=== PATIENT | female | born 1970 | race Caucasian/White ===

== ENCOUNTER 2017-06-02 23:27 | Emergency (ER) | payer BC ==
[2017-06-02] MEDS ORDERED: Clindamycin HCl 150 MG Cap PO ONE (23:36)
--- NOTE | 2017-06-02 23:38 | EDM.PDOC ---
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 ED EXAM, ANIMAL BITE - Physical Exam Exam: See Below Exam Limited By: No Limitations General Appearance: Alert, WD/WN, No Apparent Distress, Anxious Ears: Hearing Grossly Normal Throat/Mouth: Normal Voice, No Airway Compromise Head: Atraumatic, Facial Tenderness (left cheek 4x spfl puncture without active bleeding), Other Neck: Non-Tender, Full Range of Motion Respiratory/Chest: No Respiratory Distress Cardiovascular: Regular Rate, Rhythm GI/Abdominal: Soft, Non-Tender Neurological: Alert, Oriented, Normal Cognition, Normal Gait, No Motor/Sensory Deficits Psychiatric: Anxious Skin Exam: Normal Color, Warm/Dry Course - Vital Signs Last Recorded V/S: Last Vital Signs Temp 37.3 C 06/02/17 23:36 Pulse 114 H 06/02/17 23:36 Resp 16 06/02/17 23:36 BP 163/89 H 06/02/17 23:36 Pulse Ox 97 06/02/17 23:36 - Orders/Labs/Meds Meds: Medications Discontinued Medications Generic Name Dose Route Start Last Admin Trade Name Freq PRN Reason Stop Dose Admin Clindamycin HCl 150 mg 06/02/17 23:36 06/02/17 23:44 Cleocin PO 06/02/17 23:37 150 mg ONETIME ONE Administration Departure - Departure Time of Disposition: 23:45 Disposition: Home, Self-Care 01 Condition: Good Clinical Impression: Cat bite of cheek Qualifiers: Encounter type: initial encounter Laterality: left Qualified Code(s): S01.452A - Open bite of left cheek and temporomandibular area, initial encounter - Discharge Information Instructions: Animal Bite, [id number] Forms: ED Department Discharge Additional Instructions: 1) keep wounds clean and dry 2) recheck if looks worse rx given; clindamycin 150mg qid x 40
== END 2017-06-02 23:48 | disposition home or self-care (01) ==
LOC: DL.ED 23:27
DX: S01.452A Open bite of left cheek and temporomandibular area, initial encounter (principal); Z88.0 Allergy status to penicillin; Z88.1 Allergy status to other antibiotic agents; Z88.2 Allergy status to sulfonamides; W55.01XA Bitten by cat, initial encounter
CPT/HCPCS: 99283; A9270

== ENCOUNTER 2017-06-04 17:15 | Emergency (ER) | payer BC ==
[2017-06-04] MEDS ORDERED: Sodium Chloride 0.9% 1,000 ML IV ONE (20:26)
[2017-06-04] MEDS ORDERED: Clindamycin Phosphate 900 MG in Sodium Chloride 0.9% 100 ML IV ONE (20:26)
--- NOTE | 2017-06-04 20:32 | EDM.PDOC ---
ED HPI GENERAL MEDICAL PROBLEM - General Chief Complaint: Bite:Animal, Insect Stated Complaint: CAT BIT [id number] Time Seen by Provider: 06/04/17 20:27 Source of Information: Reports: Patient History Limitations: Reports: No Limitations - History of Present Illness INITIAL COMMENTS - FREE TEXT/NARRATIVE: s/p cat bite 2 days been taking clinda' but started redness & swelling on opposite face. Frontal Head Pain Score (Numeric/FACES): 4 - Related Data Allergies Allergy/AdvReac Type Severity Reaction Status Date / Time Penicillins Allergy Hives Verified 06/04/17 19:29 Sulfa (Sulfonamide Allergy Hives Verified 06/04/17 19:29 Antibiotics) tetracycline Allergy Hives Verified 06/04/17 19:29 Home Meds: Home Meds Norgestrel-Ethinyl Estradiol [Elinest-28 Tablet] 1 tab PO DAILY 06/02/17 [ History] Venlafaxine HCl [Venlafaxine HCl ER] 37.5 mg PO BID 06/02/17 [History] metFORMIN HCl [Metformin HCl] 1 tab PO BID 06/02/17 [History] Past Medical History - Past Health History Medical/Surgical History: Denies Medical/Surgical History Social & Family History - Tobacco Use Smoking Status *Q: Never Smoker Second Hand Smoke Exposure: No - Caffeine Use Caffeine Use: Reports: Soda - Recreational Drug Use Recreational Drug Use: No ED ROS GENERAL - Review of Systems Review Of Systems: ROS reveals no pertinent complaints other than HPI. ED EXAM, ANIMAL BITE - Physical Exam Exam: See Below Exam Limited By: No Limitations General Appearance: Alert, WD/WN, Mild Distress, Other (upset) Ears: Hearing Grossly Normal Throat/Mouth: Normal Voice, No Airway Compromise Head: Facial Swelling, Other (right side without lympahngitis, cat scratches on left side mildly inflammed) Neck: Non-Tender, Full Range of Motion Respiratory/Chest: No Respiratory Distress Cardiovascular: Regular Rate, Rhythm GI/Abdominal: Soft, Non-Tender Neurological: Alert, Oriented, Normal Cognition, Normal Gait, No Motor/Sensory Deficits Psychiatric: Normal Affect, Normal Mood Skin Exam: Normal Color, Warm/Dry Course - Vital Signs Last Recorded V/S: Last Vital Signs Temp 36.6 C 06/04/17 19:21 Pulse 98 06/04/17 19:21 Resp 18 06/04/17 19:21 BP 168/102 H 06/04/17 19:21 Pulse Ox 99 06/04/17 19:21 - Orders/Labs/Meds Orders: Active Orders 24 hr Category Date Time Status CULTURE BLOOD [BC] Stat Lab 06/04/17 20:35 Received Labs: Laboratory Tests 06/04/17 06/04/17 06/04/17 Range/Units 20:35 20:35 20:35 WBC 8.3 (5.0-10.0) 10^3/uL RBC 4.19 L (4.2-5.4) 10^6/uL Hgb 11.8 L (12.0-16.0) g/dL Hct 36.1 L (37.0-47.0) % MCV 86.2 (80-100) fL MCH 28.2 (27.0-34.0) pg MCHC 32.7 L (33.0-35.0) g/dL Plt Count 399 (150-450) 10^3/uL Neut % (Auto) 66.6 (42.2-75.2) % Lymph % (Auto) 19.9 L (20.5-50.1) % [place] % (Auto) 10.0 H (2-8) % Eos % (Auto) 3.5 H (1.0-3.0) % Baso % (Auto) 0.0 (0.0-1.0) % Sodium 136 (135-145) mmol/L Potassium 3.8 (3.6-5.0) mmol/L Chloride 101 (101-111) mmol/L Carbon Dioxide 26.0 (21.0-31.0) mmol/L Anion Gap 12.8 BUN 15 (7-18) mg/dL Creatinine 0.6 (0.6-1.3) mg/dL Est Cr Clr Drug Dosing TNP Estimated GFR (MDRD) > 60 BUN/Creatinine Ratio 25.00 Glucose 166 H (74-105) mg/dL Lactic Acid 1.4 (0.5-2.2) mmol/L Calcium 8.9 (8.4-10.2) mg/dl Total Bilirubin 0.6 (0.2-1.0) mg/dL AST 20 (10-42) IU/L ALT 17 (10-60) IU/L Alkaline Phosphatase 73 (42-121) IU/L Total Protein 7.1 (6.7-8.2) g/dl Albumin 3.6 (3.2-5.5) g/dl Globulin 3.5 Albumin/Globulin Ratio 1.03 Meds: Medications Discontinued Medications Generic Name Dose Route Start Last Admin Trade Name Jimmy PRN Reason Stop Dose Admin Clindamycin Phosphate 900 mg/ 106 mls @ 200 mls/hr 06/04/17 20:26 06/04/17 20 :52 Sodium Chloride IV 06/04/17 20:57 Not Given ONETIME ONE Sodium Chloride 1,000 mls @ 999 mls/hr 06/04/17 20:26 06/04/17 20:49 Normal Saline IV 06/04/17 21:26 999 mls/hr .BOLUS ONE Administration Clindamycin Phosphate 600 mg/ 104 mls @ 200 mls/hr 06/04/17 20:47 06/04/17 21 :00 Sodium Chloride IV 06/04/17 21:18 200 mls/hr ONETIME ONE Administration - Re-Assessments/Exams Free Text/Narrative Re-Assessment/Exam: 06/04/17 21:41 results discussed with pt who is feeling bit better s/p IV clinda Departure - Departure Time of Disposition: 21:42 Disposition: Home, Self-Care 01 Condition: Good Clinical Impression: Cellulitis Qualifiers: Site of cellulitis: face Qualified Code(s): L03.211 - Cellulitis of face - Discharge Information Instructions: Cellulitis, Adult, [id number] Forms: ED Department Discharge Additional Instructions: 1) must return if looks worse in morning 2) continue clindamycin - My Orders Last 24 Hours: My Active Orders 06/04/17 20:35 CULTURE BLOOD [BC] Stat - Assessment/Plan Last 24 Hours: My Active Orders 06/04/17 20:35 CULTURE BLOOD [BC] Stat
[2017-06-04] MEDS ORDERED: Clindamycin Phosphate 600 MG in Sodium Chloride 0.9% 100 ML IV ONE (20:47)
[2017-06-04 21:03] LABS: ANION GAP 12.8; CHLORIDE,CL 101 mmol/L (101-111); SODIUM,NA 136 mmol/L (135-145)
[2017-06-04] MEDS ORDERED: Diphtheria,Pertussis(Acell),Tetanus Vaccine 0.5 ML SDV IM ONE (21:42)
== END 2017-06-04 22:10 | disposition home or self-care (01) ==
LOC: DL.ED 17:15
DX: S00.81XA Abrasion of other part of head, initial encounter (principal); L03.211 Cellulitis of face; Z79.84 Long term (current) use of oral hypoglycemic drugs; Z88.0 Allergy status to penicillin; Z88.1 Allergy status to other antibiotic agents; Z88.2 Allergy status to sulfonamides; Z23 Encounter for immunization; W55.01XA Bitten by cat, initial encounter
CPT/HCPCS: 36415; 80053; 83605; 85025; 87040; 90471; 90715; 96361; 96365; 99283; J7030; J7050; S0077

== ENCOUNTER 2017-06-05 10:43 | Inpatient (IN) | payer BC ==
[2017-06-05] MEDS ORDERED: oxyCODONE 5 MG Tab PO PRN (12:09)
[2017-06-05] MEDS ORDERED: Zolpidem 5 MG Tab PO PRN (12:09)
--- NOTE | 2017-06-05 12:16 | PCM.HP ---
H&P History of Present Illness - General Date of Service: 06/05/17 Admit Problem/Dx: Admission Diagnosis/Problem Admission Diagnosis/Problem Cellulitis and abscess of face - History of Present Illness Initial Comments - Free Text/Narative: the patient is a 47-year-old lady with a history of diabetes. She was bit by a cat last Monday. the cat belongs to the senior living and has very friable immunization records. The patient came into the emergency room was started on clindamycin. Over the weekend the patient's left facial swelling was worsening and she also had some swelling on the right side so came back to the emergency room on Monday. she was given an IV dose of clindamycin and tetanus booster shot. On 05 June the patient followed up at the clinic and there was concern for a draining abscess. The patient reports moderate pain no significant fever or chills. - Related Data Allergies/Adverse Reactions: Allergies Allergy/AdvReac Type Severity Reaction Status Date / Time Penicillins Allergy Hives Verified 06/05/17 11:17 Sulfa (Sulfonamide Allergy Hives Verified 06/05/17 11:17 Antibiotics) tetracycline Allergy Hives Verified 06/05/17 11:17 Home Medications: Home Meds Norgestrel-Ethinyl Estradiol [Elinest-28 Tablet] 1 tab PO DAILY 06/02/17 [ History] Venlafaxine HCl [Venlafaxine HCl ER] 37.5 mg PO DAILY 06/02/17 [History] metFORMIN HCl [Metformin HCl] 1 tab PO BIDMEALS 06/02/17 [History] Aspirin [Ecotrin] 81 mg PO DAILY 06/05/17 [History] Bromelains 500 mg PO BID 06/05/17 [History] Calcium Carbonate/Vitamin D3 [Calcium 500 + Vit D 400] 2 each PO DAILY 06/05/17 [History] Loratadine [Claritin] 10 mg PO DAILY 06/05/17 [History] Multivitamin [One Daily Multivitamin] 1 each PO DAILY 06/05/17 [History] Quercetin Dihydrate 400 gm MC BID 06/05/17 [History] Triamcinolone Acetonide [Nasacort AQ [place]] 16.5 gm DEBRA BEDTIME 06/05/17 [ History] Ubidecarenone [Coq-10] 100 mg PO DAILY 06/05/17 [History] atorvaSTATin [Lipitor] 20 mg PO BEDTIME 06/05/17 [History] Past Medical History - Past Health History Medical/Surgical History: Denies Medical/Surgical History HEENT History: Reports: Allergic Rhinitis Cardiovascular History: Reports: High Cholesterol Respiratory History: Reports: None Gastrointestinal History: Reports: None Genitourinary History: Reports: None 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 Musculoskeletal History: Reports: Other (See Below) Other Musculoskeletal History: joint pain from allergic reaction in past Neurological History: Reports: None Psychiatric History: Reports: Anxiety Endocrine/Metabolic History: Reports: Diabetes, Type II, Obesity/BMI 30+ Hematologic History: Reports: None Immunologic History: Reports: None Oncologic (Cancer) History: Reports: None Dermatologic History: Reports: Other (See Below) Other Dermatologic History: 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' - Infectious Disease History Infectious Disease History: Reports: Chicken Pox - Past Surgical History Cardiovascular Surgical History: Reports: None Respiratory Surgical History: Reports: None GI Surgical History: Reports: None Female Surgical History: Reports: None Endocrine Surgical History: Reports: None Neurological Surgical History: Reports: None Musculoskeletal Surgical History: Reports: None Dermatological Surgical History: Reports: None Social & Family History - Family History Family Medical History: Noncontributory - Tobacco Use Smoking Status *Q: Never Smoker Second Hand Smoke Exposure: No - Caffeine Use Caffeine Use: Reports: Soda - Recreational Drug Use Recreational Drug Use: No H&P Review of Systems - Review of Systems: Review Of Systems: See Below General: Denies: Fever Pulmonary: Denies: Shortness of Breath Cardiovascular: Denies: Chest Pain Musculoskeletal: Denies: Neck Pain Skin: Reports: Other (draining wound on the left face) Psychiatric: Denies: Confusion Exam - Exam Exam: See Below - Vital Signs Weight: 92.533 kg - Exam General: Alert, Oriented Neck: Supple Lungs: Clear to Auscultation, Normal Respiratory Effort Cardiovascular: Regular Rate, Regular Rhythm Extremities: No Pedal Edema Skin: Other (on the left side of the face there are 4 puncture wounds one of diabetes small scab draining small amount of yellow pus. No palpable deep abscess but the superficial abscess was drained by minimal manual pressure) - Patient Data Lab Results Last 24 hrs: laboratory records were reviewed from the prior ER visit wbc was 8.4, hemoglobin 11.6, glucose 166 Result Diagrams: 06/05/17 12:02 *Q Meaningful Use (ADM) - VTE *Q VTE Criteria *Q: - Stroke *Q Stroke Criteria *Q: - AMI *Q AMI Criteria *Q: - Problem List (1) Cellulitis and abscess of face SNOMED Code(s): 530968836 ICD Code: L03.211 - CELLULITIS OF FACE; L02.01 - CUTANEOUS ABSCESS OF FACE Status: Acute Current Visit: Yes (2) Cat bite of cheek SNOMED Code(s): 740125130 ICD Code: S01.459A - OPEN BITE OF UNSP CHEEK AND TEMPOROMANDIBULAR AREA, INIT ; W55.01XA - BITTEN BY CAT, INITIAL ENCOUNTER Status: Acute Current Visit: No Qualifiers: Encounter type: initial encounter Laterality: left Qualified Code(s): S01.452A - Open bite of left cheek and temporomandibular area, initial encounter ; W55.01XA - Bitten by cat, initial encounter; W55.01XA - Bitten by cat, initial encounter (3) Diabetes SNOMED Code(s): 63260332 ICD Code: E11.9 - TYPE 2 DIABETES MELLITUS WITHOUT COMPLICATIONS Status: Acute Current Visit: Yes Problem List Initiated/Reviewed/Updated: Yes Orders Last 24hrs: Active Orders 24 hr Category Date Time Status Patient Status [ADT] Routine ADT 06/05/17 12:09 Ordered Antiembolic Devices [RC] PER UNIT ROUTINE Care 06/05/17 12:11 Ordered Glucose [Blood Glucose Check, Bedside] [RC] QIDACANDBED Care 06/05/17 12:09 Ordered Oxygen Therapy [RC] PRN Care 06/05/17 12:09 Ordered Peripheral IV Care [RC] . DIRECTED Care 06/05/17 12:11 Ordered Up ad Rosenda [RC] ASDIRECTED Care 06/05/17 12:09 Ordered VTE/DVT Education [RC] PER UNIT ROUTINE Care 06/05/17 12:09 Ordered Vital Signs [RC] Q4H Care 06/05/17 12:09 Ordered Consistent Carbohydrate Diet [DIET] Diet 06/05/17 Dinner Ordered BASIC METABOLIC PANEL,BMP [CHEM] AM Lab 06/06/17 05:15 Ordered BASIC METABOLIC PANEL,BMP [CHEM] Routine Lab 06/05/17 11:48 Ordered CBC WITH AUTO DIFF [HEME] AM Lab 06/06/17 05:15 Ordered CBC WITH AUTO DIFF [HEME] Routine Lab 06/05/17 11:48 Ordered CULTURE BLOOD [BC] Stat Lab 06/05/17 11:45 Ordered CULTURE BLOOD [BC] Stat Lab 06/05/17 11:45 Ordered CULTURE WOUND + SMEAR [RM] Routine Lab 06/05/17 12:08 Uncollected Acetaminophen [Tylenol] Med 06/05/17 12:09 Ordered 650 mg PO Q4H PRN Clindamycin Phosphate [Cleocin] 600 mg Med 06/05/17 12:15 Ordered Sodium Chloride 0.9% [Normal Saline] 100 ml IV Q8H Enoxaparin [Lovenox] Med 06/06/17 09:00 Ordered 40 mg SUBCUT DAILY Insulin Aspart [NovoLOG] Med 06/05/17 17:00 Ordered See Protocol SUBCUT TIDAC Sodium Chloride 0.9% [Saline Flush] Med 06/05/17 12:09 Ordered 10 ml FLUSH ASDIRECTED PRN Vancomycin Pharmacy to Dose [Pharmacy to Dose - Med 06/05/17 12:15 Ordered Vancomycin] 1 dose .XX ASDIRECTED Zolpidem [Ambien] Med 06/05/17 12:09 Ordered 5 mg PO BEDTIME PRN oxyCODONE Med 06/05/17 12:09 Ordered 5 mg PO Q4H PRN Antiembolic Hose [OM.PC] Per Unit Routine Oth 06/05/17 12:11 Ordered Blood Culture x2 Reflex Set [OM.PC] Stat Oth 06/05/17 11:45 Ordered Peripheral IV Insertion Adult [OM.PC] Routine Oth 06/05/17 12:09 Ordered Saline Lock Insert [OM.PC] Routine Oth 06/05/17 12:09 Ordered Resuscitation Status Routine Resus Stat 06/05/17 12:09 Ordered Medication Orders Clindamycin Phosphate 600 mg/ (Sodium Chloride) 104 mls @ 200 mls/hr IV Q8H [facility] Insulin Aspart (Novolog) 0 unit SUBCUT TIDAC [facility] PRN Reason: Protocol Vancomycin HCl (Pharmacy To Dose - Vancomycin) 1 dose .XX ASDIRECTED [facility] Assessment/Plan Comment:: the patient is a 47-year-old lady with a history of diabetes who was bit by a cat last Monday. The patient received a tetanus booster on 04 June. The CAT immunization records were available at the senior living. #1 facial cellulitis and abscess secondary to cat bite The small abscess appears draining freely. I do not think that the incision and drainage is necessary. No apparent deep abscess Obtain blood culture, wound culture Treat the patient with IV clindamycin and vancomycin. Monitor clinically #2 diabetes Hold metformin in case the patient may need a CT scan Follow blood sugars, he'll supplemental insulin as needed #3 DVT prophylaxis with subcutaneous heparin
[2017-06-05 12:33] LABS: ANION GAP 14.8; CHLORIDE,CL 100 mmol/L (101-111); SODIUM,NA 135 mmol/L (135-145)
[2017-06-05] MEDS: Insulin Aspart 100 Units/ML 3 ML Pen SUBCUT SCH ×2 (12:56→17:07)
[2017-06-05] MEDS: Clindamycin Phosphate 600 MG in Sodium Chloride 0.9% 100 ML IV SCH ×2 (14:04→20:20)
[2017-06-05] MEDS: Sodium Chloride 0.9% 10 ML Syringe FLUSH PRN ×3 (14:07→17:05)
[2017-06-05] MEDS ORDERED: Vancomycin 1 GM AdvVial ONE (14:40)
[2017-06-05] MEDS: Acetaminophen 325 MG Tab PO PRN ×2 (15:06→22:39)
[2017-06-05] MEDS: atorvaSTATin 20 MG Tab PO SCH (20:20)
[2017-06-06] MEDS: Clindamycin Phosphate 600 MG in Sodium Chloride 0.9% 100 ML IV SCH ×4 (04:01→20:19)
[2017-06-06 07:06] LABS: ANION GAP 13.3; CHLORIDE,CL 101 mmol/L (101-111); SODIUM,NA 135 mmol/L (135-145)
[2017-06-06] MEDS: Insulin Aspart 100 Units/ML 3 ML Pen SUBCUT SCH ×3 (08:09→17:53)
[2017-06-06] MEDS: Loratadine 10 MG Tab PO SCH (08:10)
[2017-06-06] MEDS: Aspirin 81 MG Tab.EC PO SCH (08:10)
[2017-06-06] MEDS: Calcium Carbonate/Vitamin D3 1250 MG-200 Unit Tab PO SCH (08:10)
[2017-06-06] MEDS: Venlafaxine 37.5 MG Cap.ER PO SCH (08:10)
[2017-06-06] MEDS: Acetaminophen 325 MG Tab PO PRN ×2 (08:10→18:14)
[2017-06-06] MEDS: Multivitamins,Therapeutic Tab PO SCH (08:10)
[2017-06-06] MEDS: Enoxaparin 40 MG/0.4 ML Syringe SUBCUT SCH (08:10)
--- NOTE | 2017-06-06 12:39 | PCM.PN ---
- General Info Date of Service: 06/06/17 Subjective Update: Remained stable, no chills, no fever When administering the vancomycin was developing itching of the scalp No redness or rash developed - Review of Systems General: Denies: Fever, Weakness Pulmonary: Denies: Shortness of Breath Cardiovascular: Denies: Chest Pain - Patient Data Vitals - Most Recent: Last Vital Signs Temp 36.8 C 06/06/17 11:00 Pulse 96 06/06/17 11:00 Resp 18 06/06/17 11:00 BP 141/82 H 06/06/17 11:00 Pulse Ox 99 06/06/17 12:09 Weight - Most Recent: 92.533 kg I&O - Last 24 Hours: Intake & Output 06/05/17 06/06/17 06/06/17 22:59 06:59 14:59 Intake Total 746 1116 800 Output Total 1500 800 600 Balance -754 316 200 Lab Results Last 24 Hours: Laboratory Results - last 24 hr 06/05/17 06/05/17 06/05/17 Range/Units 12:02 12:35 17:07 WBC (5.0-10.0) 10^3/uL RBC (4.2-5.4) 10^6/uL Hgb (12.0-16.0) g/dL Hct (37.0-47.0) % MCV (80-100) fL MCH (27.0-34.0) pg MCHC (33.0-35.0) g/dL Plt Count (150-450) 10^3/uL Neut % (Auto) (42.2-75.2) % Lymph % (Auto) (20.5-50.1) % [place] % (Auto) (2-8) % Eos % (Auto) (1.0-3.0) % Baso % (Auto) (0.0-1.0) % Sodium 135 (135-145) mmol/L Potassium 3.8 (3.6-5.0) mmol/L Chloride 100 L (101-111) mmol/L Carbon Dioxide 24.0 (21.0-31.0) mmol/L Anion Gap 14.8 BUN 14 (7-18) mg/dL Creatinine 0.7 (0.6-1.3) mg/dL Est Cr Clr Drug Dosing 74.74 mL/min Estimated GFR (MDRD) > 60 Glucose 132 H (74-105) mg/dL POC Glucose 122 H 137 H (70-105) mg/dl Calcium 9.2 (8.4-10.2) mg/dl 06/05/17 06/06/17 06/06/17 Range/Units 21:19 06:30 06:30 WBC 5.9 (5.0-10.0) 10^3/uL RBC 4.04 L (4.2-5.4) 10^6/uL Hgb 11.3 L (12.0-16.0) g/dL Hct 34.8 L (37.0-47.0) % MCV 86.1 (80-100) fL MCH 28.0 (27.0-34.0) pg MCHC 32.5 L (33.0-35.0) g/dL Plt Count 376 (150-450) 10^3/uL Neut % (Auto) 65.8 (42.2-75.2) % Lymph % (Auto) 20.7 (20.5-50.1) % [place] % (Auto) 9.7 H (2-8) % Eos % (Auto) 3.8 H (1.0-3.0) % Baso % (Auto) 0.0 (0.0-1.0) % Sodium 135 (135-145) mmol/L Potassium 4.3 (3.6-5.0) mmol/L Chloride 101 (101-111) mmol/L Carbon Dioxide 25.0 (21.0-31.0) mmol/L Anion Gap 13.3 BUN 12 (7-18) mg/dL Creatinine 0.7 (0.6-1.3) mg/dL Est Cr Clr Drug Dosing 74.74 mL/min Estimated GFR (MDRD) > 60 Glucose 149 H (74-105) mg/dL POC Glucose 164 H (70-105) mg/dl Calcium 8.7 (8.4-10.2) mg/dl 06/06/17 06/06/17 Range/Units 07:48 11:48 WBC (5.0-10.0) 10^3/uL RBC (4.2-5.4) 10^6/uL Hgb (12.0-16.0) g/dL Hct (37.0-47.0) % MCV (80-100) fL MCH (27.0-34.0) pg MCHC (33.0-35.0) g/dL Plt Count (150-450) 10^3/uL Neut % (Auto) (42.2-75.2) % Lymph % (Auto) (20.5-50.1) % [place] % (Auto) (2-8) % Eos % (Auto) (1.0-3.0) % Baso % (Auto) (0.0-1.0) % Sodium (135-145) mmol/L Potassium (3.6-5.0) mmol/L Chloride (101-111) mmol/L Carbon Dioxide (21.0-31.0) mmol/L Anion Gap BUN (7-18) mg/dL Creatinine (0.6-1.3) mg/dL Est Cr Clr Drug Dosing mL/min Estimated GFR (MDRD) Glucose (74-105) mg/dL POC Glucose 166 H 161 H (70-105) mg/dl Calcium (8.4-10.2) mg/dl [place] Results Last 24 Hours: Microbiology 06/05/17 12:05 Aerobic Blood Culture - Preliminary Blood - Venous - Lab Draw NO GROWTH AFTER 1 DAY Anaerobic Blood Culture - Preliminary NO GROWTH AFTER 1 DAY 06/05/17 12:02 Aerobic Blood Culture - Preliminary Blood - Venous NO GROWTH AFTER 1 DAY Anaerobic Blood Culture - Preliminary NO GROWTH AFTER 1 DAY 06/05/17 11:56 Gram Stain - Final Face - Cheek, Left Med Orders - Current: Current Medications Acetaminophen (Tylenol) 650 mg PO Q4H PRN PRN Reason: Pain (Mild 1-3)/fever Last Admin: 06/06/17 08:10 Dose: 650 mg Aspirin (Halfprin) 81 mg PO DAILY [facility] Last Admin: 06/06/17 08:10 Dose: 81 mg Atorvastatin Calcium (Lipitor) 20 mg PO BEDTIME [facility] Last Admin: 06/05/17 20:20 Dose: 20 mg Calcium Carbonate (Calcium Carbonate/Vitamin D 1250 Mg-200 Unit) 2 tab PO DAILY [facility] Last Admin: 06/06/17 08:10 Dose: 2 tab Enoxaparin Sodium (Lovenox) 40 mg SUBCUT DAILY [facility] Last Admin: 06/06/17 08:10 Dose: 40 mg Vancomycin HCl 1.5 gm/ Sodium (Chloride) 500 mls @ 250 mls/hr IV Q12H [facility] Clindamycin Phosphate 600 mg/ (Sodium Chloride) 104 mls @ 200 mls/hr IV Q8H [facility] Last Admin: 06/06/17 12:21 Dose: 200 mls/hr Insulin Aspart (Novolog) 0 unit SUBCUT TIDAC [facility] PRN Reason: Protocol Last Admin: 06/06/17 12:20 Dose: 2 units Loratadine (Claritin) 10 mg PO DAILY [facility] Last Admin: 06/06/17 08:10 Dose: 10 mg Multivitamins (Thera) 1 each PO DAILY [facility] Last Admin: 06/06/17 08:10 Dose: 1 each Non-Formulary Medication (Norgestrel-Ethinyl Estradiol [Elinest-28 Tablet]) 1 tab PO DAILY [facility] Oxycodone HCl (Oxycodone) 5 mg PO Q4H PRN PRN Reason: Pain (moderate 4-6) Sodium Chloride (Saline Flush) 10 ml FLUSH ASDIRECTED PRN PRN Reason: Keep Vein Open Last Admin: 06/05/17 17:05 Dose: 10 ml Vancomycin HCl (Pharmacy To Dose - Vancomycin) 1 dose .XX ASDIRECTED [facility] Venlafaxine HCl (Effexor Xr) 37.5 mg PO DAILY [facility] Last Admin: 06/06/17 08:10 Dose: 37.5 mg Zolpidem Tartrate (Ambien) 5 mg PO BEDTIME PRN PRN Reason: Sleep Discontinued Medications Clindamycin Phosphate 600 mg/ (Sodium Chloride) 104 mls @ 200 mls/hr IV Q8H [facility] Last Admin: 06/06/17 04:01 Dose: 200 mls/hr Vancomycin HCl 1.5 gm/ Sodium (Chloride) 250 mls @ 125 mls/hr IV Q12H [facility] Last Admin: 06/05/17 15:01 Dose: Not Given Vancomycin HCl 1.5 gm/ Sodium (Chloride) 250 mls @ 125 mls/hr IV Q12H [facility] Stop: 06/05/17 17:00 Last Admin: 06/05/17 14:57 Dose: 125 mls/hr Vancomycin HCl 1.5 gm/ Sodium (Chloride) 250 mls @ 125 mls/hr IV Q12H [facility] Last Admin: 06/06/17 01:00 Dose: 125 mls/hr Vancomycin HCl (Vancocin) Confirm Administered Dose 2 gm .ROUTE .STK-MED ONE Stop: 06/05/17 14:41 Last Admin: 06/05/17 15:01 Dose: Not Given - Exam General: Alert, Oriented HEENT: Other (On the left side of the cheek there are for punctured wounds. There appears to have subcutaneous induration under 2 of them no significant drainage. Only small amount from the right upper) Neck: Supple Lungs: Clear to Auscultation Cardiovascular: Regular Rate, Regular Rhythm Extremities: No Pedal Edema - Problem List & Annotations (1) Cellulitis and abscess of face SNOMED Code(s): 976811749 Code(s): L03.211 - CELLULITIS OF FACE; L02.01 - CUTANEOUS ABSCESS OF FACE Status: Acute Current Visit: Yes (2) Cat bite of cheek SNOMED Code(s): 426111030 Code(s): S01.459A - OPEN BITE OF UNSP CHEEK AND TEMPOROMANDIBULAR AREA, INIT ; W55.01XA - BITTEN BY CAT, INITIAL ENCOUNTER Status: Acute Current Visit: No Qualifiers: Encounter type: initial encounter Laterality: left Qualified Code(s): S01.452A - Open bite of left cheek and temporomandibular area, initial encounter ; W55.01XA - Bitten by cat, initial encounter; W55.01XA - Bitten by cat, initial encounter (3) Diabetes SNOMED Code(s): 39218943 Code(s): E11.9 - TYPE 2 DIABETES MELLITUS WITHOUT COMPLICATIONS Status: Acute Current Visit: Yes - Problem List Review Problem List Initiated/Reviewed/Updated: Yes - My Orders Last 24 Hours: My Active Orders 06/05/17 11:45 Blood Culture x2 Reflex Set [OM.PC] Stat 06/05/17 11:56 CULTURE WOUND + SMEAR [RM] Routine 06/05/17 12:02 CULTURE BLOOD [BC] Stat 06/05/17 12:05 CULTURE BLOOD [BC] Stat 06/05/17 12:09 Patient Status [ADT] Routine Glucose [Blood Glucose Check, Bedside] [RC] QIDACANDBED Oxygen Therapy [RC] PRN Up ad Rosenda [RC] ASDIRECTED VTE/DVT Education [RC] PER UNIT ROUTINE Vital Signs [RC] Q4H Acetaminophen [Tylenol] 650 mg PO Q4H PRN Sodium Chloride 0.9% [Saline Flush] 10 ml FLUSH ASDIRECTED PRN Zolpidem [Ambien] 5 mg PO BEDTIME PRN oxyCODONE 5 mg PO Q4H PRN Peripheral IV Insertion Adult [OM.PC] Routine Saline Lock Insert [OM.PC] Routine Resuscitation Status Routine 06/05/17 12:11 Antiembolic Devices [RC] PER UNIT ROUTINE Peripheral IV Care [RC] 21 Antiembolic Hose [OM.PC] Per Unit Routine 06/05/17 12:15 Insulin Aspart [NovoLOG] See Protocol SUBCUT TIDAC Vancomycin Pharmacy to Dose [Pharmacy to Dose - Vancomycin] 1 dose .XX ASDIRECTED 06/05/17 21:00 atorvaSTATin [Lipitor] 20 mg PO BEDTIME 06/05/17 Dinner Consistent Carbohydrate Diet [DIET] 06/06/17 09:00 Aspirin [Halfprin] 81 mg PO DAILY Calcium Carbonate/Vitamin D3 [Calcium Carbonate/Vitamin D 1250 MG-200 Unit] 2 tab PO DAILY Enoxaparin [Lovenox] 40 mg SUBCUT DAILY Loratadine [Claritin] 10 mg PO DAILY Multivitamins,Therapeutic [Thera] 1 each PO DAILY Norgestrel-Ethinyl Estradiol [Elinest-28 Tablet] 1 tab PO DAILY Venlafaxine [Effexor XR] 37.5 mg PO DAILY 06/06/17 12:00 Clindamycin Phosphate [Cleocin] 600 mg Sodium Chloride 0.9% [Normal Saline] 100 ml IV Q8H 06/06/17 12:35 diphenhydrAMINE [Benadryl] 50 mg PO Q6H PRN 06/06/17 13:00 Vancomycin 1.5 gm Sodium Chloride 0.9% [Normal Saline] 500 ml IV Q12H - Plan Plan:: the patient is a 47-year-old lady with a history of diabetes who was bit by a cat last Monday. The patient received a tetanus booster on 04 June. The Cat's immunization records [facility] the [facility] living. #1 facial cellulitis and abscess secondary to cat bite There are four puncture wounds I can palpate indurated area under 2 of them. Follow them closely to evaluate for abscess development Pending blood culture, wound culture Treat the patient with IV clindamycin and vancomycin. Use Benadryl before vancomycin administration Monitor clinically #2 diabetes Hold metformin in case the patient may need a CT scan to evaluate for abscesses Follow blood sugars, use supplemental insulin as needed #3 DVT prophylaxis with subcutaneous heparin
[2017-06-06] MEDS: Sodium Chloride 0.9% 10 ML Syringe FLUSH PRN (13:20)
[2017-06-06] MEDS: diphenhydrAMINE 50 MG Cap PO PRN (13:28)
[2017-06-06] MEDS: Vancomycin 1.5 GM in Sodium Chloride 0.9% 500 ML IV SCH (13:45)
[2017-06-06] MEDS: Carboxymethylcellulose Sodium 1% Ophth Gel 0.4 ML UD EYEBOTH PRN (15:52)
[2017-06-06] MEDS: atorvaSTATin 20 MG Tab PO SCH (20:25)
[2017-06-07] MEDS: diphenhydrAMINE 50 MG Cap PO PRN ×2 (00:59→13:44)
[2017-06-07] MEDS: Vancomycin 1.5 GM in Sodium Chloride 0.9% 500 ML IV SCH ×2 (01:43→13:44)
[2017-06-07] MEDS: Clindamycin Phosphate 600 MG in Sodium Chloride 0.9% 100 ML IV SCH ×3 (08:26→20:24)
[2017-06-07] MEDS: Insulin Aspart 100 Units/ML 3 ML Pen SUBCUT SCH ×3 (08:55→17:14)
[2017-06-07] MEDS: Aspirin 81 MG Tab.EC PO SCH (08:57)
[2017-06-07] MEDS: Multivitamins,Therapeutic Tab PO SCH (08:57)
[2017-06-07] MEDS: Calcium Carbonate/Vitamin D3 1250 MG-200 Unit Tab PO SCH (08:57)
[2017-06-07] MEDS: Loratadine 10 MG Tab PO SCH (08:57)
[2017-06-07] MEDS: Enoxaparin 40 MG/0.4 ML Syringe SUBCUT SCH (08:57)
[2017-06-07] MEDS: Venlafaxine 37.5 MG Cap.ER PO SCH (08:57)
--- NOTE | 2017-06-07 10:46 | PCM.PN ---
- General Info Date of Service: 06/07/17 Admission Dx/Problem (Free Text): Admission Diagnosis/Problem Admission Diagnosis/Problem Cellulitis and abscess of face Subjective Update: No new complaints Indicates that her facial pain is improved Still has an area of induration on the left cheek. It is less tender. It is not fluctuant - Review of Systems General: Reports: No Symptoms, Fever HEENT: Reports: Other (Area of bruising on the left cheek) Pulmonary: Reports: No Symptoms Gastrointestinal: Reports: No Symptoms Neurological: Reports: No Symptoms - Patient Data Vitals - Most Recent: Last Vital Signs Temp 36.3 C 06/07/17 08:30 Pulse 104 H 06/07/17 08:30 Resp 20 06/07/17 08:30 BP 146/80 H 06/07/17 08:30 Pulse Ox 99 06/07/17 08:30 Weight - Most Recent: 92.533 kg I&O - Last 24 Hours: Intake & Output 06/06/17 06/07/17 06/07/17 22:59 06:59 14:59 Intake Total 150 Balance 150 Lab Results Last 24 Hours: Laboratory Results - last 24 hr 06/06/17 06/06/17 06/06/17 Range/Units 11:48 17:06 21:22 POC Glucose 161 H 108 H 118 H (70-105) mg/dl 06/07/17 Range/Units 08:14 POC Glucose 169 H (70-105) mg/dl [place] Results Last 24 Hours: Microbiology 06/05/17 12:05 Aerobic Blood Culture - Preliminary Blood - Venous - Lab Draw NO GROWTH AFTER 1 DAY Anaerobic Blood Culture - Preliminary NO GROWTH AFTER 1 DAY 06/05/17 12:02 Aerobic Blood Culture - Preliminary Blood - Venous NO GROWTH AFTER 1 DAY Anaerobic Blood Culture - Preliminary NO GROWTH AFTER 1 DAY Med Orders - Current: Current Medications Acetaminophen (Tylenol) 650 mg PO Q4H PRN PRN Reason: Pain (Mild 1-3)/fever Last Admin: 06/06/17 18:14 Dose: 650 mg Artificial Tears (Refresh Celluvisc) 1 each EYEBOTH Q1H PRN PRN Reason: Dry Eyes Last Admin: 06/06/17 15:52 Dose: 1 each Aspirin (Halfprin) 81 mg PO DAILY [facility] Last Admin: 06/07/17 08:57 Dose: 81 mg Atorvastatin Calcium (Lipitor) 20 mg PO BEDTIME [facility] Last Admin: 06/06/17 20:25 Dose: 20 mg Calcium Carbonate (Calcium Carbonate/Vitamin D 1250 Mg-200 Unit) 2 tab PO DAILY [facility] Last Admin: 06/07/17 08:57 Dose: 2 tab Diphenhydramine HCl (Benadryl) 50 mg PO Q6H PRN PRN Reason: Itching prior to vancomycin Last Admin: 06/07/17 00:59 Dose: 50 mg Enoxaparin Sodium (Lovenox) 40 mg SUBCUT DAILY [facility] Last Admin: 06/07/17 08:57 Dose: 40 mg Vancomycin HCl 1.5 gm/ Sodium (Chloride) 500 mls @ 250 mls/hr IV Q12H [facility] Last Admin: 06/07/17 01:43 Dose: 250 mls/hr Clindamycin Phosphate 600 mg/ (Sodium Chloride) 104 mls @ 200 mls/hr IV Q8H [facility] Last Admin: 06/07/17 08:26 Dose: Not Given Insulin Aspart (Novolog) 0 unit SUBCUT TIDAC [facility] PRN Reason: Protocol Last Admin: 06/07/17 08:55 Dose: 2 units Loratadine (Claritin) 10 mg PO DAILY [facility] Last Admin: 06/07/17 08:57 Dose: 10 mg Multivitamins (Thera) 1 each PO DAILY [facility] Last Admin: 06/07/17 08:57 Dose: 1 each Non-Formulary Medication (Norgestrel-Ethinyl Estradiol [Elinest-28 Tablet]) 1 tab PO DAILY [facility] Oxycodone HCl (Oxycodone) 5 mg PO Q4H PRN PRN Reason: Pain (moderate 4-6) Sodium Chloride (Saline Flush) 10 ml FLUSH ASDIRECTED PRN PRN Reason: Keep Vein Open Last Admin: 06/06/17 13:20 Dose: 10 ml Vancomycin HCl (Pharmacy To Dose - Vancomycin) 1 dose .XX ASDIRECTED [facility] Venlafaxine HCl (Effexor Xr) 37.5 mg PO DAILY [facility] Last Admin: 06/07/17 08:57 Dose: 37.5 mg Zolpidem Tartrate (Ambien) 5 mg PO BEDTIME PRN PRN Reason: Sleep Discontinued Medications Clindamycin Phosphate 600 mg/ (Sodium Chloride) 104 mls @ 200 mls/hr IV Q8H [facility] Last Admin: 06/06/17 12:47 Dose: Not Given Vancomycin HCl 1.5 gm/ Sodium (Chloride) 250 mls @ 125 mls/hr IV Q12H [facility] Last Admin: 06/05/17 15:01 Dose: Not Given Vancomycin HCl 1.5 gm/ Sodium (Chloride) 250 mls @ 125 mls/hr IV Q12H [facility] Stop: 06/05/17 17:00 Last Admin: 06/05/17 14:57 Dose: 125 mls/hr Vancomycin HCl 1.5 gm/ Sodium (Chloride) 250 mls @ 125 mls/hr IV Q12H [facility] Last Admin: 06/06/17 01:00 Dose: 125 mls/hr Vancomycin HCl (Vancocin) Confirm Administered Dose 2 gm .ROUTE .[facility] ONE Stop: 06/05/17 14:41 Last Admin: 06/05/17 15:01 Dose: Not Given - Exam General: Alert, Oriented Lungs: Clear to Auscultation Cardiovascular: Regular Rate, Regular Rhythm Extremities: Normal Inspection (Area of bruising on the left check), Normal Range of Motion, Non-Tender, No Pedal Edema, Normal Capillary Refill - Problem List Review Problem List Initiated/Reviewed/Updated: Yes - Plan Plan:: the patient is a 47-year-old lady with a history of diabetes who was bit by a cat last Monday. The patient received a tetanus booster on 04 June. The Cat's immunization records were available [facility] the [place] [facility]. #1 facial cellulitis and abscess secondary to cat bite There are four puncture wounds #2 diabetes Hold metformin in case the patient may need a CT scan to evaluate for abscesses Follow blood sugars, use supplemental insulin as needed #3 DVT prophylaxis with subcutaneous heparin Plan: Patient was reexamined today. The area of bite is not fluctuant. I do not think there is anything to drain. Continue intravenous antibiotics at this point Reexamine patient serially Blood sugars are within acceptable limits Continue to hold metformin because of possible need for CT scan
[2017-06-07] MEDS: Sodium Chloride 0.9% 10 ML Syringe FLUSH PRN ×2 (20:22→21:09)
[2017-06-07] MEDS: atorvaSTATin 20 MG Tab PO SCH (20:27)
[2017-06-08] MEDS: diphenhydrAMINE 50 MG Cap PO PRN ×2 (01:04→14:32)
[2017-06-08] MEDS: Sodium Chloride 0.9% 10 ML Syringe FLUSH PRN ×5 (01:10→16:43)
[2017-06-08] MEDS: Vancomycin 1.5 GM in Sodium Chloride 0.9% 500 ML IV SCH ×2 (01:14→14:06)
[2017-06-08] MEDS: Acetaminophen 325 MG Tab PO PRN ×3 (01:22→20:29)
[2017-06-08] MEDS: Clindamycin Phosphate 600 MG in Sodium Chloride 0.9% 100 ML IV SCH ×3 (04:04→20:22)
[2017-06-08] MEDS: Insulin Aspart 100 Units/ML 3 ML Pen SUBCUT SCH ×3 (09:41→17:52)
[2017-06-08] MEDS: Loratadine 10 MG Tab PO SCH (09:43)
[2017-06-08] MEDS: Multivitamins,Therapeutic Tab PO SCH (09:43)
[2017-06-08] MEDS: Venlafaxine 37.5 MG Cap.ER PO SCH (09:43)
[2017-06-08] MEDS: Calcium Carbonate/Vitamin D3 1250 MG-200 Unit Tab PO SCH (09:43)
[2017-06-08] MEDS: Aspirin 81 MG Tab.EC PO SCH (09:44)
[2017-06-08] MEDS: Enoxaparin 40 MG/0.4 ML Syringe SUBCUT SCH (09:44)
[2017-06-08] MEDS: Carboxymethylcellulose Sodium 1% Ophth Gel 0.4 ML UD EYEBOTH PRN (10:29)
--- NOTE | 2017-06-08 11:21 | PN ---
DATE: 06/08/2017 The patient this morning is doing well. The patient denies any significant ongoing complaint and the bite on the left side of her face is doing well and improving. The patient denies any fever, chills, chest pain, shortness of breath, abdominal pain, or any other complaints. OBJECTIVE: Vital Signs: Blood pressure was 141/77, pulse of 87, respirations 16, temperature of 98.9. Heart: Regular rate and rhythm. Normal S1 and S2. Lungs: Clear. No crackles. No wheezing. HEENT: Examination of her face is remarkable for some site of the puncture wound on the left side of the face, but there is no significant swelling or erythema. IMPRESSION: Cat bite with cellulitis on the face. The patient is doing well on current IV antibiotics, that is clindamycin and vancomycin. I am going to keep her on her current IV vancomycin and hopefully tomorrow, we can discharge her home on oral clindamycin as patient does not have a lot of options for oral antibiotics because of her multiple allergies. [facility] /[id number]
[2017-06-08] MEDS: NORGESTREL ETHINYL ESTRADIOL PO SCH (14:11)
[2017-06-08] MEDS: atorvaSTATin 20 MG Tab PO SCH (20:23)
[2017-06-09] MEDS: Vancomycin 1.5 GM in Sodium Chloride 0.9% 500 ML IV SCH ×3 (01:09→14:55)
[2017-06-09] MEDS: Clindamycin Phosphate 600 MG in Sodium Chloride 0.9% 100 ML IV SCH ×2 (04:07→14:55)
[2017-06-09] MEDS: Sodium Chloride 0.9% 10 ML Syringe FLUSH PRN ×2 (04:11→10:22)
[2017-06-09] MEDS: Insulin Aspart 100 Units/ML 3 ML Pen SUBCUT SCH ×2 (08:28→13:08)
[2017-06-09] MEDS: Venlafaxine 37.5 MG Cap.ER PO SCH (08:43)
[2017-06-09] MEDS: Aspirin 81 MG Tab.EC PO SCH (08:43)
[2017-06-09] MEDS: Loratadine 10 MG Tab PO SCH (08:43)
[2017-06-09] MEDS: Enoxaparin 40 MG/0.4 ML Syringe SUBCUT SCH (08:43)
[2017-06-09] MEDS: Calcium Carbonate/Vitamin D3 1250 MG-200 Unit Tab PO SCH (08:48)
[2017-06-09] MEDS: Acetaminophen 325 MG Tab PO PRN (08:49)
[2017-06-09] MEDS: NORGESTREL ETHINYL ESTRADIOL PO SCH (08:50)
[2017-06-09] MEDS: Multivitamins,Therapeutic Tab PO SCH (08:53)
[2017-06-09] MEDS: diphenhydrAMINE 50 MG Cap PO PRN (10:29)
--- NOTE | 2017-06-09 11:16 | PN ---
DATE: 06/09/2017 SUBJECTIVE: The patient continues to do well. The patient denies any ongoing complaints. Denies any chest pain, shortness of breath, fever, chills, or any significant facial pain. Blood sugar this morning was 162. OBJECTIVE: Vital Signs: Blood pressure is 130/56, pulse of 98, respiration of 18, temperature of 98.6. SHEENT: Examination is remarkable for the scab from the puncture wound on the left cheek area, but there are no signs of cellulitis or any significant swelling. Neck: Supple. Heart: Regular rate and rhythm. Normal S1 and S2. No gallops. No rubs. Lungs: Equal bilaterally. No crackles. No wheezing. Abdomen: Soft and nontender. Bowel sounds positive. Extremities: Negative for any pedal edema. No calf tenderness. PLAN: We will discharge the patient home today, and I am going to resume her clindamycin as at home. I am also going to put the patient on Levaquin 500 mg p.o. daily for the next 7 days for her Pasteurella multocida cellulitis of the face. I am going to have her follow up at the clinic an in 7 to 10 days. [facility] /[id number]
--- NOTE | 2017-06-10 03:37 | DISCH ---
FINAL DIAGNOSES: 1. 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 2. Type 2 diabetes mellitus. BRIEF HISTORY OF PRESENT ILLNESS: Please see H and P. PERTINENT LAB, X-RAY, AND OTHER TESTS: See H and P. Gram stain and culture of the cellulitis showed Pasteurella multocida, but no sensitivities done. HOSPITAL COURSE: The patient was admitted to General Medicine floor. She was started on IV vancomycin and IV clindamycin. She responded well. The swelling and the redness improved. She was subsequently discharged. CONDITION ON DISCHARGE: Improved. She will be continued on oral clindamycin at home, and we will also add levofloxacin on discharge. We will also resume her previous home medications. [facility] /[id number]
== END 2017-06-09 14:55 | disposition still patient (30) | DRG 383 ==
LOC: UNDOADMIN 10:43 → DL.MS 10:43
PROVIDERS: ADMIT Internal Medicine; ATTEND Internal Medicine
DX: L03.211 Cellulitis of face (principal); L02.01 Cutaneous abscess of face; S01.459A Open bite of unspecified cheek and temporomandibular area, initial encounter; W55.01XA Bitten by cat, initial encounter; E11.9 Type 2 diabetes mellitus without complications; J30.9 Allergic rhinitis, unspecified; E78.00 Pure hypercholesterolemia, unspecified; F41.9 Anxiety disorder, unspecified; E66.9 Obesity, unspecified; Z68.39 Body mass index [BMI] 39.0-39.9, adult; Z79.84 Long term (current) use of oral hypoglycemic drugs; Z79.82 Long term (current) use of aspirin; Z79.899 Other long term (current) drug therapy; Z88.0 Allergy status to penicillin; Z88.1 Allergy status to other antibiotic agents; Z88.2 Allergy status to sulfonamides
CPT/HCPCS: 36415; 80048; 80202; 82962; 85025; 87040; 87070; 87077; 87205; A9270-GY; J1650; J1815-GY; J3370; J7040; J7050; Q0163; S0077

== ENCOUNTER 2018-10-20 12:49 | Emergency (ER) | payer BC ==
--- NOTE | 2018-10-20 13:22 | EDM.PDOC ---
ED HPI GENERAL MEDICAL PROBLEM - General Stated Complaint: CAT BITE Time Seen by Provider: 10/20/18 13:20 Source of Information: Reports: Patient History Limitations: Reports: No Limitations - History of Present Illness INITIAL COMMENTS - FREE TEXT/NARRATIVE: cat bite left ankle 4 days ago, saw clinic placed on LINEZOLIDc and prednisone but worse now. - Related Data Allergies Allergy/AdvReac Type Severity Reaction Status Date / Time levofloxacin [From Levaquin] Allergy Mild Numbness Verified 06/09/17 11:01 clindamycin Allergy Hives Verified 10/20/18 13:52 Penicillins Allergy Hives Verified 06/05/17 11:17 Sulfa (Sulfonamide Allergy Hives Verified 06/05/17 11:17 Antibiotics) tetracycline Allergy Hives Verified 06/05/17 11:17 Home Meds: Home Meds Norgestrel-Ethinyl Estradiol [Elinest-28 Tablet] 1 tab PO DAILY 06/02/17 [ History] Venlafaxine HCl [Venlafaxine HCl ER] 37.5 mg PO DAILY 06/02/17 [History] metFORMIN HCl [Metformin HCl] 1 tab PO BIDMEALS 06/02/17 [History] Aspirin [Ecotrin EC] 81 mg PO DAILY 06/05/17 [History] Bromelains 500 mg PO BID 06/05/17 [History] Calcium Carbonate/Vitamin D3 [Calcium 500 + Vit D 400] 2 each PO DAILY 06/05/17 [History] Loratadine [Claritin] 10 mg PO DAILY 06/05/17 [History] Multivitamin [One Daily Multivitamin] 1 each PO DAILY 06/05/17 [History] Quercetin Dihydrate 400 gm MC BID 06/05/17 [History] Triamcinolone Acetonide [Nasacort AQ [place]] 16.5 gm DEBRA BEDTIME 06/05/17 [ History] Ubidecarenone [Coq-10] 100 mg PO DAILY 06/05/17 [History] atorvaSTATin [Lipitor] 20 mg PO BEDTIME 06/05/17 [History] Clindamycin HCl [Cleocin] 150 mg PO Q6H 10 Days cap 06/09/17 [Rx] levoFLOXacin [Levaquin] 500 mg PO DAILY 7 Days tab 06/09/17 [Rx] Linezolid 600 mg PO BID 10/20/18 [History] predniSONE 20 mg PO DAILY 10/20/18 [History] Past Medical History - Past Health History Medical/Surgical History: Denies Medical/Surgical History HEENT History: Reports: Allergic Rhinitis Cardiovascular History: Reports: High Cholesterol Respiratory History: Reports: None Gastrointestinal History: Reports: None Genitourinary History: Reports: None SITE INSPECTOR History: Reports: None Musculoskeletal History: Reports: Other (See Below) Other Musculoskeletal History: joint pain from allergic reaction in past Neurological History: Reports: None Psychiatric History: Reports: Anxiety Endocrine/Metabolic History: Reports: Diabetes, Type II, Obesity/BMI 30+ Hematologic History: Reports: None Immunologic History: Reports: None Oncologic (Cancer) History: Reports: None Dermatologic History: Reports: Other (See Below) Other Dermatologic History: 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' - Infectious Disease History Infectious Disease History: Reports: Chicken Pox - Past Surgical History Cardiovascular Surgical History: Reports: None Respiratory Surgical History: Reports: None GI Surgical History: Reports: None Female Surgical History: Reports: None Endocrine Surgical History: Reports: None Neurological Surgical History: Reports: None Musculoskeletal Surgical History: Reports: None Dermatological Surgical History: Reports: None Social & Family History - Family History Family Medical History: Noncontributory - Caffeine Use Caffeine Use: Reports: Soda ED ROS GENERAL - Review of Systems Review Of Systems: ROS reveals no pertinent complaints other than HPI. ED EXAM, SKIN/RASH Exam: See Below Exam Limited By: No Limitations General Appearance: Alert, WD/WN, No Apparent Distress Ears: Hearing Grossly Normal Throat/Mouth: Normal Voice, No Airway Compromise Head: Atraumatic Neck: Non-Tender, Full Range of Motion Respiratory/Chest: No Respiratory Distress Cardiovascular: Regular Rate, Rhythm GI/Abdominal: Soft, Non-Tender Extremities: Other (left ankle cellulitis, NV wnl, ) Neurological: Alert, Oriented, Normal Cognition, Normal Gait, No Motor/Sensory Deficits Psychiatric: Normal Affect, Normal Mood Skin: Warm, Dry, Normal Color Location, Skin: Lower Extremity, Left Characteristics: Erythematous Associated features: Warmth, Tenderness, Swelling, Inflammation. No: Lymphangitis Lymphatic: No Adenopathy Course - Vital Signs Last Recorded V/S: Last Vital Signs Temp 36.8 C 10/20/18 13:52 Pulse 80 10/20/18 13:52 Resp 18 10/20/18 13:52 BP 157/84 H 10/20/18 13:52 Pulse Ox 99 10/20/18 13:52 - Orders/Labs/Meds Orders: Active Orders 24 hr Category Date Time Status CULTURE BLOOD [BC] Stat Lab 10/20/18 13:30 Received Labs: Laboratory Tests 10/20/18 10/20/18 10/20/18 Range/Units 13:30 13:30 13:30 WBC 7.6 (5.0-10.0) 10^3/uL RBC 4.42 (4.2-5.4) 10^6/uL Hgb 12.9 D (12.0-16.0) g/dL Hct 38.7 (37.0-47.0) % MCV 87.6 (80-100) fL MCH 29.2 (27.0-34.0) pg MCHC 33.3 (33.0-35.0) g/dL Plt Count 484 H D (150-450) 10^3/uL Neut % (Auto) 72.3 (42.2-75.2) % Lymph % (Auto) 17.1 L (20.5-50.1) % [place] % (Auto) 7.8 (2-8) % Eos % (Auto) 2.8 (1.0-3.0) % Baso % (Auto) 0.0 (0.0-1.0) % Sodium 134 L (135-145) mmol/L Potassium 4.2 (3.6-5.0) mmol/L Chloride 102 (101-111) mmol/L Carbon Dioxide 21.0 (21.0-31.0) mmol/L Anion Gap 15.2 BUN 17 (7-18) mg/dL Creatinine 0.8 (0.6-1.3) mg/dL Est Cr Clr Drug Dosing 66.31 mL/min Estimated GFR (MDRD) > 60 BUN/Creatinine Ratio 21.25 Glucose 127 H (74-105) mg/dL Lactic Acid 1.0 (0.5-2.2) mmol/L Calcium 8.7 (8.4-10.2) mg/dl Total Bilirubin 0.4 (0.2-1.0) mg/dL AST 15 (10-42) IU/L ALT 17 (10-60) IU/L Alkaline Phosphatase 66 (42-121) IU/L Total Protein 7.4 (6.7-8.2) g/dl Albumin 3.8 (3.2-5.5) g/dl Globulin 3.6 Albumin/Globulin Ratio 1.06 - Re-Assessments/Exams Free Text/Narrative Re-Assessment/Exam: 10/20/18 14:56 results discussed with pt who states the swelling from this am has already gone down alot. it was the redness that concerned her since the clinic told her to have it checked. Departure - Departure Time of Disposition: 14:57 Disposition: Home, Self-Care 01 Condition: Good Clinical Impression: Cat bite involving extremity Cellulitis Qualifiers: Site of cellulitis: extremity Site of cellulitis of extremity: lower extremity Laterality: left Qualified Code(s): L03.116 - Cellulitis of left lower limb - Discharge Information Forms: ED Department Discharge Additional Instructions: 1) recheck tomorrow if area is larger 2) follow up at clinic - My Orders Last 24 Hours: My Active Orders 10/20/18 13:30 CULTURE BLOOD [BC] Stat - Assessment/Plan Last 24 Hours: My Active Orders 10/20/18 13:30 CULTURE BLOOD [BC] Stat
[2018-10-20 14:13] LABS: ANION GAP 15.2; CHLORIDE,CL 102 mmol/L (101-111); SODIUM,NA 134 mmol/L (135-145)
== END 2018-10-20 15:08 | disposition home or self-care (01) ==
LOC: DL.ED 12:49
DX: S91.052A Open bite, left ankle, initial encounter (principal); L03.116 Cellulitis of left lower limb; E11.9 Type 2 diabetes mellitus without complications; F41.9 Anxiety disorder, unspecified; E78.00 Pure hypercholesterolemia, unspecified; Z79.899 Other long term (current) drug therapy; Z79.84 Long term (current) use of oral hypoglycemic drugs; Z79.82 Long term (current) use of aspirin; Z88.1 Allergy status to other antibiotic agents; Z88.0 Allergy status to penicillin; W55.01XA Bitten by cat, initial encounter
CPT/HCPCS: 36415; 80053; 83605; 85025; 87040; 99283

== ENCOUNTER 2022-08-27 12:19 | Emergency (ER) | payer BC ==
[2022-08-27] MEDS ORDERED: metroNIDAZOLE 250 MG Tab PO ONE ×2 (12:20→13:36)
[2022-08-27] MEDS ORDERED: Cefuroxime 250 MG Tab PO ONE ×2 (12:20→13:34)
[2022-08-27] MEDS ORDERED: metroNIDAZOLE 250 MG Tab ONE (13:52)
== END 2022-08-27 14:11 | disposition home or self-care (01) ==
LOC: DL.ED 12:19
DX: S61.451A Open bite of right hand, initial encounter (principal); E78.00 Pure hypercholesterolemia, unspecified; I10 Essential (primary) hypertension; E11.9 Type 2 diabetes mellitus without complications; E66.9 Obesity, unspecified; Z88.1 Allergy status to other antibiotic agents; Z88.0 Allergy status to penicillin; Z88.2 Allergy status to sulfonamides; Z79.82 Long term (current) use of aspirin; Z79.899 Other long term (current) drug therapy; Z79.84 Long term (current) use of oral hypoglycemic drugs; W55.01XA Bitten by cat, initial encounter
CPT/HCPCS: 99283; A9270